=== PATIENT | female | born 1975 | race Caucasian/White ===

== ENCOUNTER → 2023-05-13 09:25 | Outpatient (CLI) | payer OTHER, SELFPAY ==
--- NOTE | 2023-05-13 | DI.MRI.S_ITS ---
PROCEDURE: MR KNEE RT WO CON INDICATIONS: KNEE PAIN - right TECHNIQUE: Noncontrast sagittal PD fast spin echo and T2 fast spin echo with fat saturation, sagittal 3-D FLASH with fat saturation; coronal T1 spin echo and PD fast spin echo with fat saturation, and axial PD fast spin echo with fat saturation through the knee. COMPARISON: None. FINDINGS: Image quality: Excellent. Anterior Cruciate Ligament: Intact. Posterior Cruciate Ligament: Intact. Medial Collateral Ligament: Intact. Lateral Collateral Ligament: Intact. Medial Meniscus: Complex tearing of the medial meniscus with an inferiorly displaced meniscal flap component at the meniscal body extending into the medial tibial gutter. A horizontal oblique component is seen at the posterior horn extending to the inner third of the tibial articular surface. Lateral Meniscus: Intermediate intensity vertical longitudinal signal is seen at the anterior horn of the lateral meniscus extending to the anterior root attachment. No meniscal extrusion. Medial and Lateral Tendons: The semimembranosus tendon insertions and meniscocapsular junction appear intact. Visualized portions of the pes anserinus tendons appear normal. No abnormal bursal fluid. The long and short heads of the biceps femoris tendon appear intact. The popliteus tendon appears intact. No signs of posterolateral corner injury. Iliotibial band appears normal. Anterior Structures: Patella kathie. The quadriceps tendon and the patellar tendon are intact. 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 The tibial tubercle-trochlear groove distance is borderline at 1.6 cm. Mild edema is seen at the superolateral aspect of the infrapatellar fat pad, which can be seen in the setting of lateral femoral condyle-patellar tendon friction syndrome. Bones: No acute trabecular bone injury or fracture. Cystic changes at the far posterior portion of the medial femoral condyle may represent an intraosseous ganglion or subchondral cystic changes. Medial Femorotibial Cartilage: Mild partial-thickness cartilage thinning in the weight-bearing portion of medial femorotibial compartment. Lateral Femorotibial Cartilage: No focal cartilage defect. Patellofemoral Cartilage: High-grade partial-thickness cartilage irregularity is seen in the lateral patellar facet and lateral femoral trochlea. Soft Tissues: A small joint effusion is present. Small medial popliteal cyst. The musculature surrounding the knee is normal in bulk. IMPRESSION: 1. Complex tearing of the medial meniscus with a horizontal oblique component at the posterior horn extending to the inner third of the tibial articular surface as well as a small meniscal flap component at the meniscal body with meniscal tissue extending into the medial tibial gutter. 2. Suspected vertical longitudinal tearing of the anterior horn of the lateral meniscus. 3. Patella kathie. 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 4. Mild edema is seen at the superolateral aspect of the infrapatellar fat pad, which can be seen in the setting of lateral femoral condyle-patellar tendon friction syndrome. 5. 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 Mild grade 2 cartilage thinning in the medial compartment. 6. Small joint effusion. Small medial popliteal cyst. Approved by: Gee Zuleta M.D. on 05/13/2023 at 13:50
== END ==
PROVIDERS: Referring Provider Internal Medicine; Visit Provider Internal Medicine
DX: S83.241A Other tear of medial meniscus, current injury, right knee, initial encounter (principal); S83.001A Unspecified subluxation of right patella, initial encounter; M25.461 Effusion, right knee; M94.261 Chondromalacia, right knee; M71.21 Synovial cyst of popliteal space [Baker], right knee
CPT/HCPCS: 73721